=== PATIENT | female | born 1985 | race Caucasian/White ===

== ENCOUNTER 2019-09-18 09:51 | Emergency (ER) | payer MEDICAID ==
[~2019-09-18] VITALS: Ht 154.9 cm; Wt 76.6 kg
[~2019-09-18 09:51] MED LIST: ACET500C28 PO; DIVA-61 PO; ONDA4TAB13 PO
[2019-09-18] MEDS ORDERED: METOCLOPRAMIDE 5 MG/ML, 2ML IM ONE (10:30)
[2019-09-18] MEDS ORDERED: DIPHENHYDRAMINE 50 MG/ML, 1ML IM ONE (10:30)
--- NOTE | 2019-09-18 10:30 | NUR ---
Assumed care of patient. C/O blurry vision and GOTTLIEB worse the last 3 weeks. Hx idiopathic intracranial hypertension. Patient has had CSF drained several times. Patient's neurologist closed and she does not currently have a new one. Patient states, "they usually drain my CSF to 11". No acute distress. Provided with blanket. Will continue to monitor.
--- NOTE | 2019-09-18 10:31 | NUR ---
christina ugalde spoke with dr hanson
[2019-09-18] MEDS ORDERED: DIPHENHYDRAMINE 50 MG/ML, 1ML ONE (10:47)
[2019-09-18] MEDS ORDERED: METOCLOPRAMIDE 5 MG/ML, 2ML ONE (10:47)
[2019-09-18] MEDS ORDERED: METOCLOPRAMIDE 5 MG/ML, 2ML IVPush ONE (11:00)
[2019-09-18] MEDS ORDERED: DIPHENHYDRAMINE 50 MG/ML, 1ML IVPush ONE (11:00)
[2019-09-18] MEDS ORDERED: SODIUM CHLORIDE 0.9% 1,000ML IVBOLUS ONE (11:00)
[2019-09-18 11:45] VITALS: BP 111/55
--- NOTE | 2019-09-18 11:45 | NUR ---
Reports decreased headache.
--- NOTE | 2019-09-18 12:07 | NUR ---
Patient/Caregiver given discharge instructions and they have confirmed that they understand the instructions. Patient ambulatory with steady gait.
== END 2019-09-18 12:10 | disposition home or self-care (01) ==
LOC: ED 10:28
DX: R51 Headache (principal); H53.8 Other visual disturbances
CPT/HCPCS: 96374; 96375; 99284; J1200; J2765; J7030